=== PATIENT | male | born 2000 | race Two or more races ===

== ENCOUNTER 2023-11-10 13:57 | Emergency (ER) | payer SELFPAY ==
[2023-11-10] MEDS: Diphtheria,Pertussis(Acell),Tetanus Vaccine 0.5 ML Syringe IM ONE (14:54)
[2023-11-10] MEDS: Lidocaine 1% 5 ML VIAL INJECT ONE (14:54)
== END 2023-11-10 16:28 | disposition home or self-care (01) ==
LOC: MW.ED 13:57
DX: S61.212A Laceration without foreign body of right middle finger without damage to nail, initial encounter (principal); Z23 Encounter for immunization; W26.0XXA Contact with knife, initial encounter
CPT/HCPCS: 12002; 90471; 90715; 99282-25; 99283; J3490